=== PATIENT | female | born 1950 | race Caucasian/White ===

== ENCOUNTER 2016-10-23 09:18 | Outpatient (CLI) | payer MEDICARE, OTHER ==
--- NOTE | 2016-11-06 13:14 | Mammography Report ---
DIGITAL SCREENING MAMMOGRAM: 10/23/2016 CLINICAL INDICATION: A 66-year-old with family history of breast cancer, for screening. COMPARISON: 11/2014, 01/2014, 02/2013, 12/2012, 12/2011, 11/2010, 10/2009, 07/2008. TECHNIQUE: Routine CC and MLO projections were obtained of the breasts. FINDINGS: Scattered fibroglandular tissue is present within the breasts. There are no dominant rae s, suspicious microcalcifications, or secondary signs of malignancy. In comparison to the previous st udies, there are no significant changes. ASSESSMENT: NO MAMMOGRAPHIC EVIDENCE OF MALIGNANCY. NO SIGNIFICANT INTERVAL CHANGES. RECOMMENDATION: Screening mammography is recommended annually. BIRADS category 1 - negative. STANDARD QUALIFYING STATEMENTS 1. This examination was reviewed with the aid of Computed-Aided Detection (CAD). 2. A negative or benign imaging report should not delay biopsy if clinically suspicious findings are present. Consider surgical consultation if warranted. More than 5% of cancers are not identified by i maging. 3. Dense breasts may obscure an underlying neoplasm. JOB #: [id number] EXT JOB #:[id number]
== END 2016-10-23 09:19 | disposition home or self-care (01) ==
LOC: DI 09:18
PROVIDERS: ATTEND Obstetrics & Gynecology
DX: Z12.31 Encounter for screening mammogram for malignant neoplasm of breast (principal); Z80.3 Family history of malignant neoplasm of breast
CPT/HCPCS: 77067

== ENCOUNTER 2017-05-29 01:56 | Outpatient (CLI) | payer MEDICARE, OTHER | END 2017-05-29 01:57 | disposition critical access hospital (66) | LOC: EMS 01:56 | PROVIDERS: ATTEND Surgery | DX: R10.11 Right upper quadrant pain (principal) | CPT/HCPCS: A0425; A0429 ==

== ENCOUNTER 2017-05-29 02:14 | Emergency (ER) | payer MEDICARE, OTHER ==
[2017-05-29] MEDS ORDERED: SODIUM CHLORIDE 0.9% 1,000 ML IV ONE (02:31)
[2017-05-29] MEDS ORDERED: ACETAMINOPHEN 325 MG TABLET PO STA (02:31)
--- NOTE | 2017-05-29 02:40 | ED Physician Documentation ---
History of Present Illness - Stated complaint Stated Complaint: FEVER, CHILLS, BACK PAIN - Chief complaint Chief Complaint: Back Pain - History obtained from History obtained from: Patient (pt reports that for the past 4-5 days she has not felt well, has had chills and sweats, right flank pain, urinary sx, cough, decreased oral intake, no rashes, no bowel sx, no abd pain, some nausea but no vomiting. no travel, no abx use.) Review of Systems Constitutional: reports: Fever, Chills, Myalgias, Fatigue Ears: denies: Drainage/discharge, Tinnitus/ringing Nose: denies: Congestion, Sinus pressure / pain Throat: reports: Oral lesions / sores. denies: Dental pain / toothache, Sore throat, Swollen tonsils Cardiac: denies: Chest pain / pressure, Palpitations Respiratory: reports: Cough. denies: Dyspnea, Hemoptysis, Wheezing GI: reports: Nausea. denies: Abdominal Pain, Vomiting, Constipation, Diarrhea, Bloody / black stool : reports: Dysuria, Frequency, Incontinent. denies: Unable to Void, Hematuria , Discharge, Vaginal bleeding Skin: denies: Rash, Lesions, Laceration (s) Musculoskeletal: reports: Back pain (right CVA). denies: Neck pain Neurologic: reports: Generalized weakness. denies: Focal weakness, Numbness, Confused, Altered mental status, Headache, LOC PD PAST MEDICAL HISTORY - Past Medical History Cardiovascular: Hypertension, High cholesterol Endocrine/Autoimmune: Type 2 diabetes - Present Medications Home Medications: Ambulatory Orders Medication Instructions Recorded Confirmed Aspirin [Aspirin EC] 81 mg PO DAILY 05/29/17 05/29/17 Canagliflozin [Invokana] 100 mg PO DAILY 05/29/17 05/29/17 Ciprofloxacin HCl [Cipro] 500 mg PO BID #14 tablet 05/29/17 Felodipine [Felodipine ER] 5 mg PO DAILY 05/29/17 05/29/17 Lisinopril 20 mg PO DAILY 05/29/17 05/29/17 Simvastatin 40 mg PO DAILY 05/29/17 05/29/17 glipiZIDE ER [Glucotrol Xl] 2.5 mg PO DAILY 05/29/17 05/29/17 metFORMIN [Glucophage] 500 mg PO DAILY 05/29/17 05/29/17 - Allergies Allergies/Adverse Reactions: Allergies Allergy/AdvReac Type Severity Reaction Status Date / Time No Known Drug Allergies Allergy Verified 05/29/17 02:27 PD ED PE NORMAL - Vitals Vital signs reviewed: Yes (tachycardic and febrile) - General General: Alert and oriented X 3, No acute distress, Well developed/nourished - HEENT HEENT: Atraumatic, Moist mucous membranes, Pharynx benign - Neck Neck: Supple, no meningeal sign - Cardiac Cardiac: RRR (tachycardic but regular), No murmur, No gallop, Strong equal pulses (radial ) - Respiratory Respiratory: No respiratory distress, Clear bilaterally - Abdomen Abdomen: Soft, Non tender, Non distended - Back Back: No: No CVA TTP (right CVA) - Derm Derm: Normal color, No rash - Extremities Extremities: No deformity, No tenderness to palpate, No edema - Neuro Neuro: Alert and oriented X 3, No motor deficit, No sensory deficit, Normal speech Eye Opening: Spontaneous Motor: Obeys Commands Verbal: Oriented GCS Score: 15 - Psych Psych: Normal mood, Normal affect Results - Vitals Vitals: Vital Signs - 24 hr 05/29/17 05/29/17 02:23 04:15 Temperature 38.6 C H Heart Rate 117 H 96 Respiratory 20 27 H Rate Blood Pressure 161/70 H 141/75 H O2 Saturation 98 98 Oxygen O2 Source Room air - EKG (time done) 0238 Rate: Rate (enter#) Rhythm: Sinus tachycardia [place]: Normal Intervals: Normal LA, QRS normal QRS: Normal Ischemia: Normal ST segments - Labs Labs: Laboratory Tests 05/29/17 05/29/17 05/29/17 03:04 03:04 03:04 WBC 7.7 RBC 3.70 L Hgb 11.6 L Hct 33.4 L MCV 90.4 MCH 31.5 H MCHC 34.8 RDW 13.5 Plt Count 138 MPV 8.4 Neut # 6.5 Lymph # 0.3 L [place] # 0.9 Eos # 0.0 Baso # 0.0 Absolute Nucleated RBC 0.00 Nucleated RBC % 0.0 Sodium 134 L Potassium 3.6 Chloride 104 Carbon Dioxide 21 Anion Gap 9.0 BUN 19 Creatinine 0.8 Estimated GFR (MDRD) 72 L Glucose 230 H Lactic Acid 0.9 Calcium 8.8 Total Bilirubin 0.8 AST 61 H ALT 73 H Alkaline Phosphatase 107 Total Protein 6.3 L Albumin 3.2 Globulin 3.1 Albumin/Globulin Ratio 1.0 Lipase 13 L Urine Color Urine Clarity Urine pH Ur Specific [place] Urine Protein Urine Glucose (UA) Urine Ketones Urine Occult Blood Urine Nitrite Urine Bilirubin Urine Urobilinogen Ur Leukocyte Esterase Urine RBC Urine WBC Ur Squamous Epith Cells Urine Bacteria Ur Microscopic Review Urine Culture Comments 05/29/17 03:45 WBC RBC Hgb Hct MCV MCH MCHC RDW Plt Count MPV Neut # Lymph # [place] # Eos # Baso # Absolute Nucleated RBC Nucleated RBC % Sodium Potassium Chloride Carbon Dioxide Anion Gap BUN Creatinine Estimated GFR (MDRD) Glucose Lactic Acid Calcium Total Bilirubin AST ALT Alkaline Phosphatase Total Protein Albumin Globulin Albumin/Globulin Ratio Lipase Urine Color YELLOW Urine Clarity CLEAR Urine pH 6.0 Ur Specific [place] 1.015 Urine Protein 30 H Urine Glucose (UA) 500 H Urine Ketones 40 H Urine Occult Blood SMALL H Urine Nitrite POSITIVE H Urine Bilirubin NEGATIVE Urine Urobilinogen 0.2 (NORMAL) Ur Leukocyte Esterase NEGATIVE Urine RBC 6-10 H Urine WBC 6-10 H Ur Squamous Epith Cells RARE Squamous Urine Bacteria Moderate H Ur Microscopic Review INDICATED Urine Culture Comments INDICATED PD MEDICAL DECISION MAKING - ED course Complexity details: reviewed results, re-evaluated patient, considered differential, d/w patient, d/w family ED course: Pt with tachycardia (improved with fluids and tylenol), fever, right flank pain and nitrite pos UA. pt hx and PE and labs C/W pyelo. she was able to tolerate PO intake in the ER w/o problems. first dose of ABX given in the ER w/o vomiting. pt had no vomiting while in the ER. lactate <1. no elevation in WBC. considered admission for the pyelo but because she was able to tolerate Po intake and the ABX will give trial of outpatient treatment. pt and jovanaxbbryant were given return precautions. Pt was informed that she had a urine culture pending and to follow up with her PCM. Departure - Departure Disposition: 01 Home, Self Care Clinical Impression: Pyelonephritis, Hyperglycemia due to type 2 diabetes mellitus Condition: Good Instructions: Pyelonephritis Dc Follow-Up: Tavares Hess MD [Primary Care Provider] - Prescriptions: Ciprofloxacin HCl [Cipro] 500 mg PO BID #14 tablet Comments: take your medications as instructed. Increase your fluid intake. use tylenol for any fevers, chills or body aches. Return to the ER for any new symptoms, no improvement on the antibiotics, inability to tolerate your antibiotics or any other new or worsening symptoms.
[2017-05-29 03:15] LABS: BASOPHILS % (AUTO) 0.3 %; EOSINOPHILS % (AUTO) 0.2 %; HGB - HEMOGLOBIN 11.6 g/dL (12.0-16.0); LYMPHOCYTES # (AUTO) 0.3 10^3/uL (1.5-3.5); LYMPHOCYTES % (AUTO) 3.8 %; MEAN CORPUSCULAR HEMOGLOBIN 31.5 pg (27.0-31.0); MEAN CORPUSCULAR HGB CONC 34.8 g/dL (32.0-36.0); MEAN CORPUSCULAR VOLUME 90.4 fL (81.0-99.0); MEAN PLATELET VOLUME 8.4 fL (7.9-10.8); MONOCYTES # (AUTO) 0.9 10^3/uL (0.0-1.0); MONOCYTES % (AUTO) 11.4 %; NEUTROPHILS # (AUTO) 6.5 10^3/uL (1.5-6.6); NEUTROPHILS % (AUTO) 84.3 %; PLT - PLATELET COUNT 138 10^3/uL (130-450); RED CELL DISTRIBUTION WIDTH 13.5 % (12.0-15.0); WHITE BLOOD COUNT 7.7 x10^3/uL (4.8-10.8)
[2017-05-29 03:24] LABS: ALBUMIN 3.2 g/dL (3.2-5.5); BILIRUBIN,TOTAL 0.8 mg/dL (0.2-1.0); CALCIUM 8.8 mg/dL (8.5-10.3); CREATININE 0.8 mg/dL (0.4-1.0); TOTAL PROTEIN 6.3 g/dL (6.7-8.2)
[2017-05-29 03:59] LABS: BILIRUBIN,URINE NEGATIVE (NEGATIVE); GLUCOSE, URINE (UA) 500 mg/dL (NEGATIVE); KETONES,URINE (UA) 40 mg/dL (NEGATIVE); LEUKOCYTE ESTERASE, URINE NEGATIVE (NEGATIVE); NITRITE,URINE POSITIVE (NEGATIVE); OCCULT BLOOD,URINE SMALL (NEGATIVE); PROTEIN,URINE 30 mg/dL (NEGATIVE); UROBILINOGEN,URINE 0.2 (NORMAL) E.U./dL (NORMAL)
[2017-05-29 04:08] LABS: BACTERIA,URINE Moderate /HPF (None Seen); CLARITY,URINE CLEAR (CLEAR); SQUAMOUS EPITHELIAL CELL,UR RARE Squamous (<= Few)
[2017-05-29] MEDS ORDERED: CIPROFLOXACIN 250 MG TABLET PO STA (04:11)
[2017-05-29 04:35] VITALS: BP 142/82
== END 2017-05-29 04:40 | disposition home or self-care (01) ==
LOC: EDUNIT# → ED 02:14 → SUPCPDRO 02:14 → ED 04:40
DX: R53.83 Other fatigue (principal); N12 Tubulo-interstitial nephritis, not specified as acute or chronic; E11.65 Type 2 diabetes mellitus with hyperglycemia; Z79.84 Long term (current) use of oral hypoglycemic drugs; R00.0 Tachycardia, unspecified; I10 Essential (primary) hypertension; Z79.82 Long term (current) use of aspirin
CPT/HCPCS: 36415; 80053; 81001; 81003; 83605; 83690; 85025; 87040; 87086; 93005; 96360; 99284

== ENCOUNTER 2017-05-29 19:10 | Inpatient (IN) | payer MEDICARE, OTHER ==
[2017-05-29] MEDS ORDERED: cefTRIAXone 1 GM VIAL IVP STA (19:27)
[2017-05-29] MEDS ORDERED: SODIUM CHLORIDE 0.9% 1,000 ML IV ONE ×2 (19:27)
--- NOTE | 2017-05-29 19:28 | ED Physician Documentation ---
History of Present Illness - Stated complaint Stated Complaint: ABN LAB - Chief complaint Chief Complaint: UTI - History obtained from History obtained from: Patient, Family - History of Present Illness Timing: Today Pain level max: 3 Pain level now: 0 Improved by: cipro Worsened by: nothing - Additonal information Additional information: Patient is a 67-year-old female who was seen here earlier today for rigors, fevers and chills. Diagnosed with a UTI and sent home on ciprofloxacin. Her blood cultures both returned positive with gram-negative bacilli. Therefore she was called back to the emergency department. She states she is actually feeling better than she was last night and has been doing well at home. She states that the right-sided flank pain is decreasing from what it was. No vomiting. Did have one more episode of shaking chills at home. Review of Systems Ten Systems: 10 systems reviewed and negative Constitutional: reports: Fever, Chills, Myalgias Ears: denies: Ear pain Nose: denies: Rhinorrhea / runny nose, Congestion Throat: denies: Sore throat Cardiac: denies: Chest pain / pressure Respiratory: denies: Cough GI: denies: Abdominal Pain, Nausea, Vomiting, Diarrhea : reports: Dysuria Skin: denies: Rash Musculoskeletal: denies: Neck pain, Back pain Neurologic: denies: Headache PD PAST MEDICAL HISTORY - Past Medical History Cardiovascular: Hypertension, High cholesterol Endocrine/Autoimmune: Type 2 diabetes - Past Surgical History Past Surgical History: No - Present Medications Home Medications: Ambulatory Orders Medication Instructions Recorded Confirmed Aspirin [Aspirin EC] 81 mg PO DAILY 05/29/17 05/29/17 Canagliflozin [Invokana] 100 mg PO DAILY 05/29/17 05/29/17 Ciprofloxacin HCl [Cipro] 500 mg PO BID #14 tablet 05/29/17 Felodipine [Felodipine ER] 5 mg PO DAILY 05/29/17 05/29/17 Lisinopril 20 mg PO DAILY 05/29/17 05/29/17 Simvastatin 40 mg PO DAILY 05/29/17 05/29/17 glipiZIDE ER [Glucotrol Xl] 2.5 mg PO DAILY 05/29/17 05/29/17 metFORMIN [Glucophage] 500 mg PO DAILY 05/29/17 05/29/17 - Allergies Allergies/Adverse Reactions: Allergies Allergy/AdvReac Type Severity Reaction Status Date / Time No Known Drug Allergies Allergy Verified 05/29/17 02:27 - Social History Does the pt smoke?: No Smoking Status: Former smoker Does the pt drink ETOH?: Yes Does the pt have substance abuse?: No - Immunizations Immunizations are current?: Yes - POLST Patient has POLST: No PD ED PE NORMAL - Vitals Vital signs reviewed: Yes - General General: Alert and oriented X 3, No acute distress - HEENT HEENT: Moist mucous membranes - Neck Neck: Supple, no meningeal sign - Cardiac Cardiac: RRR - Respiratory Respiratory: No respiratory distress, Clear bilaterally - Abdomen Abdomen: Soft, Non tender, Non distended - Back Back: No CVA TTP - Derm Derm: Warm and dry - Neuro Neuro: Alert and oriented X 3 - Psych Psych: Normal mood, Normal affect Results - Vitals Vitals: Vital Signs - 24 hr 05/29/17 05/29/17 19:13 21:58 Temperature 36.5 C 103.1 C H Heart Rate 93 106 H Respiratory 18 26 H Rate Blood Pressure 124/70 141/68 H O2 Saturation 96 98 Oxygen O2 Source Room air - Labs Labs: Laboratory Tests 05/29/17 05/29/17 05/29/17 19:45 19:45 19:45 WBC 8.9 RBC 3.96 L Hgb 12.2 Hct 36.1 L MCV 91.2 MCH 30.8 MCHC 33.8 RDW 13.8 Plt Count 170 MPV 8.8 Neut # Not Reportable Lymph # Not Reportable [place] # Not Reportable Eos # Not Reportable Baso # Not Reportable Absolute Nucleated RBC Not Reportable Total Counted 100 Band Neuts % (Manual) 2 Reactive Lymphs % (Man) 2 Abnorm Lymph % (Manual) 0 Metamyelocytes % 1 H Promyelocytes % 1 H Nucleated RBC % Not Reportable Neutrophils # (Manual) 5.8 Lymphocytes # (Manual) 2.0 Monocytes # (Manual) 0.4 Eosinophils # (Manual) 0.4 Basophils # (Manual) 0.0 Differential Comment MANUAL DIFFERENTIAL Platelet Estimate NORMAL (130-450,000) Platelet Morphology NORMAL APPEARANCE RBC Morph Micro Appear NORMAL APPEARANCE Sodium 135 Potassium 3.3 L Chloride 102 Carbon Dioxide 23 Anion Gap 10.0 BUN 20 Creatinine 0.8 Estimated GFR (MDRD) 72 L Glucose 251 H Lactic Acid 1.4 Calcium 9.3 Total Bilirubin 0.5 AST 54 H ALT 76 H Alkaline Phosphatase 101 Total Protein 6.5 L Albumin 3.3 Globulin 3.2 Albumin/Globulin Ratio 1.0 Lipase 19 L PD MEDICAL DECISION MAKING - ED course Complexity details: reviewed old records, reviewed results, re-evaluated patient , considered differential, d/w patient, d/w family, d/w sales operations consultant ED course: Patient is a 67-year-old female who presents to the emergency department with symptoms of pyelonephritis and 2 positive blood cultures for gram-negative bacilli. Given IV fluids and started on Rocephin. Discussed case with the hospitalist who accepts. She is well-appearing, nontoxic. Did spike a fever while in the emergency department and treated with Tylenol. Lactate is normal. This document was made in part using voice recognition software. While efforts are made to proofread this document, sound alike and grammatical errors may occur. Departure - Departure Disposition: 67 [facility] DC/Xfer Clinical Impression: Positive blood cultures, Pyelonephritis Hyperglycemia due to type 2 diabetes mellitus Qualifiers: Diabetes mellitus tank terminal gauger insulin use: unspecified tank terminal gauger insulin use status Qualified Code(s): E11.65 - Type 2 diabetes mellitus with hyperglycemia Condition: Stable Discharge Date/Time: 05/29/17 22:44
[2017-05-29 20:01] LABS: HGB - HEMOGLOBIN 12.2 g/dL (12.0-16.0); MEAN CORPUSCULAR HGB CONC 33.8 g/dL (32.0-36.0)
[2017-05-29 20:06] LABS: BASOPHILS % (AUTO) 0.5 %; EOSINOPHILS % (AUTO) 0.5 %; LYMPHOCYTES % (AUTO) 10.4 %; MEAN CORPUSCULAR HEMOGLOBIN 30.8 pg (27.0-31.0); MEAN CORPUSCULAR VOLUME 91.2 fL (81.0-99.0); MEAN PLATELET VOLUME 8.8 fL (7.9-10.8); MONOCYTES % (AUTO) 10.5 %; NEUTROPHILS % (AUTO) 78.1 %; PLT - PLATELET COUNT 170 10^3/uL (130-450); RED BLOOD COUNT 3.96 10^6/uL (4.20-5.40); RED CELL DISTRIBUTION WIDTH 13.8 % (12.0-15.0); WHITE BLOOD COUNT 8.9 x10^3/uL (4.8-10.8)
[2017-05-29 20:08] LABS: ABNORMAL LYMPHS % (MANUAL) 0 %
[2017-05-29 20:16] LABS: ALBUMIN 3.3 g/dL (3.2-5.5); BILIRUBIN,TOTAL 0.5 mg/dL (0.2-1.0); CALCIUM 9.3 mg/dL (8.5-10.3); CREATININE 0.8 mg/dL (0.4-1.0); TOTAL PROTEIN 6.5 g/dL (6.7-8.2)
[2017-05-29 21:01] LABS: BAND NEUTROPHILS % (MANUAL) 2 %; DIFFERENTIAL COMMENT MANUAL DIFFERENTIAL; EOSINOPHILS # (MANUAL) 0.4 10^3/uL (0-0.7); LYMPHOCYTES % (MANUAL) 21 %; METAMYELOCYTES % (MANUAL) 1 %; MONOCYTES # (MANUAL) 0.4 10^3/uL (0.0-1.0); NEUTROPHILS # (MANUAL) 5.8 10^3/uL (1.5-6.6); NEUTROPHILS % (MANUAL) 63 %; PLATELET ESTIMATE, MANUAL NORMAL (130-450,000) (NORMAL); PLATELET MORPHOLOGY NORMAL APPEARANCE (NORMAL); PROMYELOCYTES % (MANUAL) 1 %; RBC MORPHOLOGY (MULTIPLE) NORMAL APPEARANCE (NORMAL)
[2017-05-29] MEDS ORDERED: ACETAMINOPHEN 325 MG TABLET PO STA (22:00)
[2017-05-29] MEDS ORDERED: SODIUM CHLORIDE FLUSH 0.9% 10 ML SYRINGE IVP PRN (22:23)
[2017-05-29] MEDS ORDERED: TEMAZEPAM 15 MG CAPSULE PO PRN (22:23)
[2017-05-29] MEDS ORDERED: PROCHLORPERAZINE 10 MG/2 ML VIAL IVP PRN (22:23)
--- NOTE | 2017-05-29 22:37 | HISTORY & PHYSICAL EXAMINATION ---
Chief Complaint - Chief Complaint Chief Complaint: Fever and chills History of Present Illness - Admitted From Admitted From:: Home - History of Present Illness HPI Comment/Other: Ms. Shruti Marie is a very pleasant 67-year-old female who began to have fever and chills about 4 or 5 days ago. She came to the emergency room very early today with rigors and chills and blood cultures were obtained.2 sets of blood cultures came back positive for gram-negative bacilli and the patient was directed to come back to the hospital for admission for IV antibiotics. History - Past Medical History Cardiovascular: reports: Hypertension, High cholesterol Endocrine/Autoimmune: reports: Type 2 diabetes GI: reports: None CAD DESIGN ENGINEER: reports: None : reports: None HEENT: reports: None Psych: reports: None Musculoskeletal: reports: None Derm: reports: None MRSA Hx?: No - Past Surgical History Other past surgical history: No past surgical history - Family & Social History Family History: Mother: , Cancer (breast), CVA/TIA, Father: , CVA/TIA, Other family: Diabetes, Type 2, Hyperlipidemia, Hypertension Living arrangement: At home Living Situation: With spouse/s.o. - Substance History Use: Uses substance without health or social issues: Alcohol Abuse: Recurrent use of substance despite neg consequences: NONE Dependence: Experiences withdrawal or developed tolerances: NONE - POLST Patient has POLST: No POLST Status: Full Code Meds/Allgy - Home Medications Home Medications: Ambulatory Orders Medication Instructions Recorded Confirmed Aspirin [Aspirin EC] 81 mg PO DAILY 05/29/17 05/29/17 Canagliflozin [Invokana] 100 mg PO DAILY 05/29/17 05/29/17 Ciprofloxacin HCl [Cipro] 500 mg PO BID #14 tablet 05/29/17 Felodipine [Felodipine ER] 5 mg PO DAILY 05/29/17 05/29/17 Lisinopril 20 mg PO DAILY 05/29/17 05/29/17 Simvastatin 40 mg PO DAILY 05/29/17 05/29/17 glipiZIDE ER [Glucotrol Xl] 2.5 mg PO DAILY 05/29/17 05/29/17 metFORMIN [Glucophage] 500 mg PO DAILY 05/29/17 05/29/17 - Allergies Allergies/Adverse Reactions: Allergies Allergy/AdvReac Type Severity Reaction Status Date / Time No Known Drug Allergies Allergy Verified 05/29/17 02:27 Review of Systems - Constitutional Constitutional: reports: Fever, Chills, Weakness, Poor appetite - Eyes Eyes: denies: Pain, Irritation, Blurred vision, Dipolpia - Ears, Nose & Throat Ears, Nose & Throat: denies: Ear pain, Hearing loss, Tinnitus, Vertigo, Nasal discharge - Cardiovascular Cariovascular: reports: Lightheadedness. denies: Palpitations, Chest pain, Edema - Respiratory Respiratory: reports: Cough, Sputum production, SOB with exertion. denies: Wheezing, Snoring, Hemoptysis - Gastrointestinal Gastrointestinal: denies: Abdominal pain, Abdominal distention, Constipation, Diarrhea, Change in bowel habits, Rectal bleeding - Genitourinary Genitourinary: denies: Dysuria, Frequency, Urgency, Hematuria - Musculoskeletal Musculoskeletal: denies: Muscle pain, Back pain, Muscle aches, Stiffness - Integumentary Integumentary: denies: Rash, Pruritis, Lesions, Dryness - Neurological Neurological: denies: General weakness, Focal weakness, Headache, Dizziness - Psychiatric Psychiatric: denies: Depression, Anxiety, Suicidal - Endocrine Endocrine: reports: Intolerance to cold. denies: Polyuria, Polydypsia, Polyphagia - Hematologic/Lymphatic Hematologic/Lymphatic: denies: Anemia, Bruising, Petechiae, Blood clots - All Other Systems All Other Systems: reports: Reviewed and negative Exam - Vital Signs Reviewed Vital Signs: Yes Vital Signs: Vital Signs x48h Temp Pulse Resp BP Pulse Ox 05/29/17 21:58 103.1 C H 106 H 26 H 141/68 H 98 05/29/17 19:13 36.5 C 93 18 124/70 96 - Physical Exam General Appearance: positive: Alert, Mild distress Eyes Bilateral: positive: Normal inspection, PERRL, EOMI ENT: positive: ENT inspection nml, Pharynx nml, No signs of dehydration. negative: Purulent nasal drainage Neck: positive: Nml inspection, Thyroid nml, No JVD, Trachea midline. negative : Thyromegaly Respiratory: positive: Chest non-tender, No respiratory distress, Breath sounds nml. negative: Wheezes, Rales, Rhonchi Cardiovascular: positive: Regular rate & rhythm, No murmur, No gallop. negative : Systolic murmur, Diastolic murmur Peripheral Pulses: positive: 1+ Abdomen: positive: Non-tender, No organomegaly, Nml bowel sounds, No distention. negative: Guarding, Rebound Back: positive: Nml inspection. negative: CVA tenderness (R), CVA tenderness (L ) Skin: positive: Color nml, No rash, Warm, Dry. negative: Diaphoresis Extremities: positive: Non-tender, Full ROM, Nml appearance Neurologic/Psychiatric: positive: Oriented x3, CN's nml (2-12), Motor nml, Sensation nml, Mood/affect nml Conclusion/Plan - Problem List (1) Positive blood cultures Conclusion/Plan: The patient has 2 independent blood cultures which are positive for gram- negative bacilli. I will start her on ceftriaxone, 2 g every 8 hours around-the -clock and monitor her closely.We will await the results of the blood cultures and make any changes as necessary once they are obtained. We will continue the patient on medications for her diabetes hypertension and hyperlipidemia. - Lab Results Lab results reviewed: Yes Fish Bones: 05/29/17 19:45 05/29/17 19:45 Issues/Core Measures - Anticipated LOS Anticipated Stay Length: 2 or more midnights - [facility] Requirement for [facility] I expect patient to be DC'd or transferred within 96 hours.: Yes - DVT/VTE - Prophylaxis VTE/DVT Device ordered at admit?: Yes
[2017-05-29] MEDS: D5.45NS W/20 MEQ KCL 1,000 ML IV SCH (23:46)
[2017-05-30] MEDS: SODIUM CHLORIDE FLUSH 0.9% 10 ML SYRINGE IVP SCH ×3 (03:08→20:57)
[2017-05-30] MEDS: IBUPROFEN 400 MG TABLET PO PRN (06:00)
[2017-05-30] MEDS ORDERED: cefTAZidime 2 GM in SODIUM CHLORIDE 0.9% MINIBAG 100 ML IV SCH (06:00)
[2017-05-30] MEDS ORDERED: ACETAMINOPHEN 1,000 MG/100 ML 100 ML IV PRN (07:26)
[2017-05-30] MEDS ORDERED: metFORMIN 500 MG TABLET PO SCH (08:00)
[2017-05-30] MEDS: cefTAZidime 2 GM in SODIUM CHLORIDE 0.9% MINIBAG 100 ML IV SCH ×2 (08:17→20:57)
[2017-05-30] MEDS: ASPIRIN EC 81 MG TABLET PO SCH (08:20)
[2017-05-30] MEDS: POLYETHYLENE GLYCOL 3350 17 GM PACKET PO SCH (08:21)
[2017-05-30] MEDS: INSULIN ASPART 300 UNIT/3 ML PEN SUBQ SCH ×4 (08:22→20:49)
[2017-05-30] MEDS ORDERED: FELODIPINE ER 2.5 MG TABLET PO SCH (09:00)
[2017-05-30] MEDS ORDERED: NON FORMULARY MED (Simvastatin [Simvastatin] 40 MG) PO SCH (09:00)
[2017-05-30] MEDS ORDERED: LISINOPRIL 20 MG TABLET PO SCH ×2 (09:00→21:00)
[2017-05-30] MEDS: D5.45NS W/20 MEQ KCL 1,000 ML IV SCH (09:25)
[2017-05-30] MEDS: ACETAMINOPHEN 325 MG TABLET PO PRN ×2 (14:00→19:46)
--- NOTE | 2017-05-30 16:07 | XRAY Report ---
EXAM: CHEST RADIOGRAPHY EXAM DATE: 05/30/2017 03:49 PM. CLINICAL HISTORY: Fever. Crackles. COMPARISON: None. TECHNIQUE: 1 view. FINDINGS: Lungs/Pleura: No focal opacities evident. No pleural effusion. No pneumothorax. Mediastinum: Within exam limitations, the cardiomediastinal contour is normal. Other: No bony abnormalities noted. IMPRESSION: Normal single view chest. [facility] Referring Provider Line: [phone] SITE ID: [id number]
[2017-05-30] MEDS: MAGIC MOUTHWASH 120 ML BOTTLE PO PRN (16:48)
--- NOTE | 2017-05-30 18:24 | PROVIDER PROGRESS NOTE ---
Subjective - Prog Note Date Prog Note Date: 05/30/17 Prog Note Time: 18:22 - Subjective Pt reports feeling: No change Subjective: Shruti complains of mouth sores from shivering at home during times of fever. She denies SOB, chest pain, N/V, or a new cough. Current Medications - Current Medications Current Medications: Active Medications Acetaminophen (Tylenol) 650 mg PO Q4HR PRN PRN Reason: Pain or Fever > 38C (100.4F) Last Admin: 05/30/17 14:00 Dose: 650 mg Aspirin (Ecotrin) 81 mg PO DAILY [facility] Last Admin: 05/30/17 08:20 Dose: 81 mg Atorvastatin Calcium (Lipitor) 20 mg PO QPM [facility] Felodipine (Plendil) 5 mg PO QPM [facility] Glipizide (Glucotrol Xl) 2.5 mg PO QPM [facility] Ceftazidime 2 gm/ Sodium (Chloride) 100 mls @ 100 mls/hr IV Q12H [facility] Last Infusion: 05/30/17 09:18 Dose: Infused Acetaminophen (Ofirmev) 100 mls @ 400 mls/hr IV Q6HR PRN PRN Reason: PAIN Ibuprofen (Motrin) 400 mg PO Q4HR PRN PRN Reason: Pain 1 to 4 Last Admin: 05/30/17 06:00 Dose: 400 mg Insulin Aspart (Novolog) 1 - 9 unit SUBQ 0800,1200,1700,2100 [facility] PRN Reason: Protocol Last Admin: 05/30/17 16:48 Dose: 1 unit Insulin Glargine (Lantus Solostar) 10 unit SUBQ QPM [facility] Lisinopril (Zestril) 20 mg PO QPM [facility] Multi-Ingredient Mouthwash/Gargle () 30 ml PO Q4H PRN PRN Reason: Mouth Sore Pain Last Admin: 05/30/17 16:48 Dose: 30 ml (Canagliflozin [ Invokana] 100 Mg) Tab 1 each PO DAILY [facility] Last Admin: 05/30/17 08:27 Dose: 1 each Polyethylene Glycol (Miralax) 17 gm PO DAILY [facility] Last Admin: 05/30/17 08:21 Dose: Not Given Prochlorperazine Edisylate (Compazine Inj) 10 mg IVP Q6HR PRN PRN Reason: Nausea / Vomiting Sodium Chloride (Normal Saline Flush 0.9%) 10 ml IVP PRN PRN PRN Reason: NEEDED PER PROVIDER ORDERS Sodium Chloride (Normal Saline Flush 0.9%) 10 ml IVP Q8HR [facility] Last Admin: 05/30/17 14:00 Dose: Not Given Temazepam (Restoril) 15 mg PO QPM PRN PRN Reason: Insomnia Aspirin [Aspirin EC] 81 mg PO DAILY 05/29/17 Canagliflozin [Invokana] 100 mg PO DAILY 05/29/17 Felodipine [Felodipine ER] 5 mg PO DAILY 05/29/17 Lisinopril 20 mg PO DAILY 05/29/17 Simvastatin 40 mg PO QPM 05/29/17 glipiZIDE ER [Glucotrol Xl] 2.5 mg PO DAILY 05/29/17 metFORMIN [Glucophage] 500 mg PO DAILY 05/29/17 Objective - Vital Signs/Intake & Output Reviewed Vital Signs: Yes Vital Signs: Vital Signs x48h Temp Pulse Resp BP BP Pulse Ox 05/30/17 15:43 84 139/68 H 05/30/17 15:37 37.7 C H 83 16 155/83 H 95 05/30/17 15:06 37.8 C H 05/30/17 13:56 38.4 C H 05/30/17 12:00 37.7 C H Intake & Output: Intake & Output 05/27/17 05/28/17 05/29/17 05/30/17 23:59 23:59 23:59 23:59 Intake Total 375 2435 Output Total 100 Balance 375 2335 - Objective General Appearance: positive: No acute distress, Alert Eyes Bilateral: positive: Normal inspection, PERRL ENT: positive: ENT inspection nml, Pharynx nml, Dry mucous membranes Neck: positive: Nml inspection, Thyroid nml, No JVD, Trachea midline Respiratory: positive: Chest non-tender, No respiratory distress, Other (fine crackles bilateral low lobes.) Cardiovascular: positive: Regular rate & rhythm, No gallop, Systolic murmur Peripheral Pulses: 1+ Radial (R), 1+ Radial (L) Abdomen: positive: Non-tender, Guarding, Hepatomegaly, Abnml bowel sounds Back: positive: Nml inspection Skin: positive: Color nml, No rash, Warm, Dry Extremities: positive: Non-tender, Full ROM, No pedal edema Neurologic/Psychiatric: positive: Oriented x3, CN's nml (2-12), Motor nml, Sensation nml, Depressed mood/affect Reflexes: Bicep (R): 2+, Bicep (L): 2+ - Lab Results Fish Bones: 05/29/17 19:45 05/29/17 19:45 - Diagnostic Imaging Diagnostic Imaging Results: positive: Final report reviewed Assessment/Plan - Problem List (1) Positive blood cultures Impression: Patient was called to report to our ED after blood cultures were discovered to be positive. Patient gives a history of fever, chills, and flu like symptoms as early as 05/23. Preliminary pathogen tested out E. Coli. Plan: Continue current IV antibiotic, and wait for sensitivity results. (2) Pyelonephritis Impression: Patient denies dysuria, although has incontinence and urgency. Urine culture was obtained and is pending. Suspect leading cause of positive blood cultures. No back pain appreciated. Plan: IV antibiotics, and wait for sensitivities. Kidney ultrasound pending. (3) Diabetes mellitus type 2 in obese Impression: Patient admits to being diabetic for several years. HgA1c was ordered for AM. Patient is on 3 oral medications at home. Metformin PO was placed on hold, SSI and blood sugar checks. Plan: Review home medications, nutritional consult. (4) Hypertension Impression: Patient is on lisinopril at home and has DM type 2. 139/68 today. Plan: Continue home dose while inpatient and continue upon discharge. Qualifiers: Hypertension type: essential hypertension Qualified Code(s): I10 - Essential (primary) hypertension (5) Hyperlipidemia Impression: Patient takes a statin at home. LFTs mildly elevated upon admission, AST at 54 , ALT at 76, suspect acute illness related. Plan: Patient can remain on statin, unless liver enzymes do not trend downward. Qualifiers: Hyperlipidemia type: mixed hyperlipidemia Qualified Code(s): E78.2 - Mixed hyperlipidemia
[2017-05-30] MEDS: INSULIN GLARGINE 300 UNIT/3 ML PEN SUBQ SCH (20:48)
[2017-05-30] MEDS: ATORVASTATIN 10 MG TABLET PO SCH (20:50)
[2017-05-30] MEDS: FELODIPINE ER 2.5 MG TABLET PO SCH (20:51)
--- NOTE | 2017-05-30 21:08 | Ultrasound Report ---
EXAM: RENAL ULTRASOUND EXAM DATE: 05/30/2017 08:02 PM. CLINICAL HISTORY: Pyelonephritis. COMPARISON: None. TECHNIQUE: Real-time scanning was performed with static images obtained. FINDINGS: Right Kidney: 12.6 x 5.5 x 6.5 cm. Normal echotexture with no stones, contour-deforming masses, or h ydronephrosis. Left Kidney: 11.6 x 5.4 x 7.5 cm. Normal echotexture with no stones, contour-deforming masses, or hy dronephrosis. Bladder: Bilateral jets seen. The prevoid bladder volume was 293 cc. The postvoid bladder volume was 22.5 cc. Other: None. IMPRESSION: Normal renal ultrasound. [facility] Referring Provider Line: [phone] SITE ID: [id number]
[2017-05-31] MEDS: IBUPROFEN 400 MG TABLET PO PRN (00:24)
[2017-05-31] MEDS: ACETAMINOPHEN 325 MG TABLET PO PRN ×3 (05:00→20:54)
[2017-05-31] MEDS: SODIUM CHLORIDE FLUSH 0.9% 10 ML SYRINGE IVP SCH ×3 (05:00→20:57)
[2017-05-31 05:35] LABS: ALBUMIN 2.6 g/dL (3.2-5.5); ALBUMIN/GLOBULIN RATIO 0.8 (1.0-2.2); BILIRUBIN,TOTAL 0.5 mg/dL (0.2-1.0); CALCIUM 9.3 mg/dL (8.5-10.3); CREATININE 0.6 mg/dL (0.4-1.0); TOTAL PROTEIN 5.8 g/dL (6.7-8.2)
[2017-05-31 05:38] LABS: BASOPHILS % (AUTO) 0.6 %; EOSINOPHILS # (AUTO) 0.2 10^3/uL (0.0-0.7); EOSINOPHILS % (AUTO) 2.8 %; LYMPHOCYTES # (AUTO) 1.1 10^3/uL (1.5-3.5); LYMPHOCYTES % (AUTO) 19.7 %; MEAN CORPUSCULAR HEMOGLOBIN 30.8 pg (27.0-31.0); MEAN CORPUSCULAR HGB CONC 33.8 g/dL (32.0-36.0); MEAN CORPUSCULAR VOLUME 90.9 fL (81.0-99.0); MEAN PLATELET VOLUME 8.4 fL (7.9-10.8); MONOCYTES % (AUTO) 16.6 %; NEUTROPHILS # (AUTO) 3.5 10^3/uL (1.5-6.6); NEUTROPHILS % (AUTO) 60.3 %; PLT - PLATELET COUNT 173 10^3/uL (130-450); RED BLOOD COUNT 3.59 10^6/uL (4.20-5.40); RED CELL DISTRIBUTION WIDTH 13.9 % (12.0-15.0); WHITE BLOOD COUNT 5.8 x10^3/uL (4.8-10.8)
[2017-05-31 06:31] LABS: HB2 TOTAL 11.6 g/dL; HEMOGLOBIN A1C 0.57 g/dL; HEMOGLOBIN A1C % 6.6 % (4.6-6.2)
[2017-05-31] MEDS ORDERED: POTASSIUM CHLORIDE 20 MEQ TABLET PO ONE (07:33)
[2017-05-31] MEDS: INSULIN ASPART 300 UNIT/3 ML PEN SUBQ SCH ×4 (07:36→20:53)
[2017-05-31] MEDS: ASPIRIN EC 81 MG TABLET PO SCH (09:11)
[2017-05-31] MEDS: cefTAZidime 2 GM in SODIUM CHLORIDE 0.9% MINIBAG 100 ML IV SCH (09:11)
[2017-05-31] MEDS: MAGIC MOUTHWASH 120 ML BOTTLE PO PRN (09:12)
[2017-05-31] MEDS: POLYETHYLENE GLYCOL 3350 17 GM PACKET PO SCH (09:56)
--- NOTE | 2017-05-31 11:56 | PROVIDER PROGRESS NOTE ---
Subjective - Prog Note Date Prog Note Date: 05/31/17 Prog Note Time: 11:56 - Subjective Pt reports feeling: Improved Subjective: Shruti complains about not being able to sleep at night due to noisy staff. She denies SOB, chest pain, N/V or a new cough. She still feels "under the weather" and is curled up in her blankets, and remains febrile. Current Medications - Current Medications Current Medications: Active Medications Acetaminophen (Tylenol) 650 mg PO Q4HR PRN PRN Reason: Pain or Fever > 38C (100.4F) Last Admin: 05/31/17 05:00 Dose: 650 mg Aspirin (Ecotrin) 81 mg PO DAILY [facility] Last Admin: 05/31/17 09:11 Dose: 81 mg Atorvastatin Calcium (Lipitor) 20 mg PO QPM [facility] Last Admin: 05/30/17 20:50 Dose: 20 mg Felodipine (Plendil) 5 mg PO QPM [facility] Last Admin: 05/30/17 20:51 Dose: 5 mg Glipizide (Glucotrol Xl) 2.5 mg PO QPM [facility] Last Admin: 05/30/17 20:52 Dose: 2.5 mg Ceftazidime 2 gm/ Sodium (Chloride) 100 mls @ 100 mls/hr IV Q12H [facility] Last Infusion: 05/31/17 10:15 Dose: Infused Acetaminophen (Ofirmev) 100 mls @ 400 mls/hr IV Q6HR PRN PRN Reason: PAIN Ibuprofen (Motrin) 400 mg PO Q4HR PRN PRN Reason: Pain 1 to 4 Last Admin: 05/31/17 00:24 Dose: 400 mg Insulin Aspart (Novolog) 1 - 9 unit SUBQ 0800,1200,1700,2100 [facility] PRN Reason: Protocol Last Admin: 05/31/17 11:28 Dose: Not Given Insulin Glargine (Lantus Solostar) 10 unit SUBQ QPM [facility] Last Admin: 05/30/17 20:48 Dose: 10 unit Lisinopril (Zestril) 20 mg PO QPM [facility] Last Admin: 05/30/17 20:52 Dose: 20 mg Multi-Ingredient Mouthwash/Gargle () 30 ml PO Q4H PRN PRN Reason: Mouth Sore Pain Last Admin: 05/31/17 09:12 Dose: 30 ml (Canagliflozin [ Invokana] 100 Mg) Tab 1 each PO DAILY [facility] Last Admin: 05/31/17 09:11 Dose: 1 each Polyethylene Glycol (Miralax) 17 gm PO DAILY [facility] Last Admin: 05/31/17 09:56 Dose: Not Given Prochlorperazine Edisylate (Compazine Inj) 10 mg IVP Q6HR PRN PRN Reason: Nausea / Vomiting Sodium Chloride (Normal Saline Flush 0.9%) 10 ml IVP PRN PRN PRN Reason: NEEDED PER PROVIDER ORDERS Sodium Chloride (Normal Saline Flush 0.9%) 10 ml IVP Q8HR [facility] Last Admin: 05/31/17 05:00 Dose: 10 ml Temazepam (Restoril) 15 mg PO QPM PRN PRN Reason: Insomnia Aspirin [Aspirin EC] 81 mg PO DAILY 05/29/17 Canagliflozin [Invokana] 100 mg PO DAILY 05/29/17 Felodipine [Felodipine ER] 5 mg PO DAILY 05/29/17 Lisinopril 20 mg PO DAILY 05/29/17 Simvastatin 40 mg PO QPM 05/29/17 glipiZIDE ER [Glucotrol Xl] 2.5 mg PO DAILY 05/29/17 metFORMIN [Glucophage] 500 mg PO DAILY 05/29/17 Objective - Vital Signs/Intake & Output Reviewed Vital Signs: Yes Vital Signs: Vital Signs x48h Temp Pulse Resp BP Pulse Ox 05/31/17 07:15 37.2 C 77 20 108/50 L 96 05/31/17 04:00 37.4 C Intake & Output: Intake & Output 05/28/17 05/29/17 05/30/17 05/31/17 23:59 23:59 23:59 23:59 Intake Total 375 2935 930 Output Total 100 Balance 375 2835 930 - Objective General Appearance: positive: No acute distress, Alert Eyes Bilateral: positive: Normal inspection, PERRL ENT: positive: ENT inspection nml, Pharynx nml, No signs of dehydration Neck: positive: Nml inspection, Thyroid nml, No JVD, Trachea midline Respiratory: positive: Chest non-tender, No respiratory distress, Other ( diminished.) Cardiovascular: positive: Regular rate & rhythm, No gallop, Systolic murmur Peripheral Pulses: 2+ Radial (R), 2+ Radial (L), 2+ Dorsalis pedis (R), 2+ Dorsalis pedis (L) Abdomen: positive: Non-tender, No organomegaly, No distention, Abnml bowel sounds (hyper) Back: positive: Nml inspection Skin: positive: Color nml, No rash, Warm, Dry Extremities: positive: Non-tender, Full ROM, No pedal edema Neurologic/Psychiatric: positive: Oriented x3, CN's nml (2-12), Motor nml, Sensation nml, Depressed mood/affect Reflexes: Bicep (R): 3+, Bicep (L): 3+ - Lab Results Fish Bones: 06/01/17 05:35 06/01/17 05:35 Other Labs: Lab Results x24hrs 05/31/17 05/31/17 05/31/17 Range/Units 04:56 04:56 04:56 WBC 5.8 (4.8-10.8) x10^3/uL RBC 3.59 L (4.20-5.40) 10^6/uL Hgb 11.0 L (12.0-16.0) g/dL Hct 32.7 L (37.0-47.0) % MCV 90.9 (81.0-99.0) fL MCH 30.8 (27.0-31.0) pg MCHC 33.8 (32.0-36.0) g/dL RDW 13.9 (12.0-15.0) % Plt Count 173 (130-450) 10^3/uL MPV 8.4 (7.9-10.8) fL Neut # 3.5 (1.5-6.6) 10^3/uL Lymph # 1.1 L (1.5-3.5) 10^3/uL [place] # 1.0 (0.0-1.0) 10^3/uL Eos # 0.2 (0.0-0.7) 10^3/uL Baso # 0.0 (0.0-0.1) 10^3/uL Absolute Nucleated RBC 0.00 x10^3/uL Nucleated RBC % 0.1 /100WBC Sodium 141 (135-145) mmol/L Potassium 3.2 L (3.5-5.0) mmol/L Chloride 108 (101-111) mmol/L Carbon Dioxide 25 (21-32) mmol/L Anion Gap 8.0 (6-13) BUN 8 (6-20) mg/dL Creatinine 0.6 (0.4-1.0) mg/dL Estimated GFR (MDRD) 100 (>89) Glucose 123 H (70-100) mg/dL Glycated Hemoglobin 6.6 H (4.6-6.2) % Estim Average Glucose 143 H (70-100) Calcium 9.3 (8.5-10.3) mg/dL Total Bilirubin 0.5 (0.2-1.0) mg/dL AST 26 (10-42) IU/L ALT 56 (10-60) IU/L Alkaline Phosphatase 84 (42-121) IU/L Total Protein 5.8 L (6.7-8.2) g/dL Albumin 2.6 L (3.2-5.5) g/dL Globulin 3.2 (2.1-4.2) g/dL Albumin/Globulin Ratio 0.8 L (1.0-2.2) - Diagnostic Imaging Diagnostic Imaging Results: positive: Final report reviewed Diagnostic Imaging Comments: Retroperitoneal US 05/30/17: FINDINGS: Right Kidney: 12.6 x 5.5 x 6.5 cm. Normal echotexture with no stones, contour- deforming masses, or hydronephrosis. Left Kidney: 11.6 x 5.4 x 7.5 cm. Normal echotexture with no stones, contour- deforming masses, or hydronephrosis. Bladder: Bilateral jets seen. The prevoid bladder volume was 293 cc. The postvoid bladder volume was 22.5 cc. Other: None. IMPRESSION: Normal renal ultrasound. Chest x-ray 05/30/17: FINDINGS: Lungs/Pleura: No focal opacities evident. No pleural effusion. No pneumothorax. Mediastinum: Within exam limitations, the cardiomediastinal contour is normal. Other: No bony abnormalities noted. IMPRESSION: Normal single view chest. Assessment/Plan - Problem List (1) Bacteremia Impression: Patient was called to report to our ED after blood cultures were discovered to be positive. Patient gives a history of fever, chills, and flu like symptoms as early as 05/23. Pathogen tested out E. Coli. Plan: IV antibiotics changed to Ertapenem on 05/31/17, as a result of sensitivities. (2) Pyelonephritis Impression: Patient denies dysuria, although has incontinence and urgency. Urine culture was obtained and is pending. Suspect leading cause of positive blood cultures. No back pain appreciated. Plan: IV antibiotics that will be changed to PO to continue at home. Kidney ultrasound shows no acute findings. (3) Diabetes mellitus type 2 in obese Impression: Patient admits to being diabetic for several years. HgA1c was 6.6%. Patient is on 3 oral medications at home. Metformin PO was placed on hold, SSI and blood sugar checks. Plan: Review home medications, nutritional consult and blood glucose checks. (4) Hypertension Impression: Patient is on lisinopril at home and has DM type 2. 148/71 today. Plan: Continue home dose while inpatient and continue upon discharge. Qualifiers: Hypertension type: essential hypertension Qualified Code(s): I10 - Essential (primary) hypertension (5) Hyperlipidemia Impression: Patient takes a statin at home. LFTs mildly elevated upon admission, AST at 54 , ALT at 76, suspect acute illness related. Plan: Patient can remain on statin, unless liver enzymes do not trend downward. Qualifiers: Hyperlipidemia type: mixed hyperlipidemia Qualified Code(s): E78.2 - Mixed hyperlipidemia
[2017-05-31] MEDS ORDERED: DIPHENOX/ATROPINE 2.5/0.025 MG TABLET PO PRN (14:53)
[2017-05-31] MEDS: ERTAPENEM 1 GM in SODIUM CHLORIDE 0.9% MINIBAG 100 ML IV SCH (16:07)
[2017-05-31] MEDS: SACCHAROMYCES BOULARDII 250 MG CAPSULE PO SCH (16:08)
[2017-05-31] MEDS: INSULIN GLARGINE 300 UNIT/3 ML PEN SUBQ SCH (20:52)
[2017-05-31] MEDS: FELODIPINE ER 2.5 MG TABLET PO SCH (20:55)
[2017-05-31] MEDS: ATORVASTATIN 10 MG TABLET PO SCH (20:55)
[2017-06-01] MEDS: ACETAMINOPHEN 325 MG TABLET PO PRN (04:06)
[2017-06-01 05:52] LABS: BASOPHILS # (AUTO) 0.1 10^3/uL (0.0-0.1); BASOPHILS % (AUTO) 0.8 %; EOSINOPHILS # (AUTO) 0.2 10^3/uL (0.0-0.7); EOSINOPHILS % (AUTO) 3.4 %; HGB - HEMOGLOBIN 11.7 g/dL (12.0-16.0); LYMPHOCYTES # (AUTO) 1.4 10^3/uL (1.5-3.5); LYMPHOCYTES % (AUTO) 20.5 %; MEAN CORPUSCULAR HGB CONC 33.3 g/dL (32.0-36.0); MEAN CORPUSCULAR VOLUME 90.3 fL (81.0-99.0); MEAN PLATELET VOLUME 7.9 fL (7.9-10.8); MONOCYTES # (AUTO) 0.9 10^3/uL (0.0-1.0); MONOCYTES % (AUTO) 13.2 %; NEUTROPHILS # (AUTO) 4.1 10^3/uL (1.5-6.6); NEUTROPHILS % (AUTO) 62.1 %; PLT - PLATELET COUNT 256 10^3/uL (130-450); RED BLOOD COUNT 3.88 10^6/uL (4.20-5.40); RED CELL DISTRIBUTION WIDTH 13.8 % (12.0-15.0); WHITE BLOOD COUNT 6.7 x10^3/uL (4.8-10.8)
[2017-06-01 05:53] LABS: ALBUMIN 2.8 g/dL (3.2-5.5); ALBUMIN/GLOBULIN RATIO 0.8 (1.0-2.2); BILIRUBIN,TOTAL 0.6 mg/dL (0.2-1.0); CALCIUM 9.5 mg/dL (8.5-10.3); CREATININE 0.6 mg/dL (0.4-1.0); TOTAL PROTEIN 6.3 g/dL (6.7-8.2)
[2017-06-01] MEDS: SODIUM CHLORIDE FLUSH 0.9% 10 ML SYRINGE IVP SCH ×2 (07:25→13:34)
[2017-06-01 07:42] VITALS: BP 135/69
[2017-06-01] MEDS: ASPIRIN EC 81 MG TABLET PO SCH (08:21)
[2017-06-01] MEDS: SACCHAROMYCES BOULARDII 250 MG CAPSULE PO SCH (08:21)
[2017-06-01] MEDS: ERTAPENEM 1 GM in SODIUM CHLORIDE 0.9% MINIBAG 100 ML IV SCH (08:26)
[2017-06-01] MEDS: MAGIC MOUTHWASH 120 ML BOTTLE PO PRN (08:26)
[2017-06-01] MEDS: INSULIN ASPART 300 UNIT/3 ML PEN SUBQ SCH ×2 (08:26→12:13)
[2017-06-01] MEDS: POLYETHYLENE GLYCOL 3350 17 GM PACKET PO SCH (08:27)
--- NOTE | 2017-06-01 12:46 | Discharge Plan ---
Discharge Plan Disposition: 01 Home, Self Care Condition: Stable Prescriptions: Levofloxacin [Levaquin] 500 mg PO DAILY 10 Days #10 tablet Saccharomyces Boulardii [Florastor] 250 mg PO BID #40 capsule Diet: Regular Activity Restrictions: No Restrictions Shower Restrictions: No Driving Restrictions: No Weight Bearing: Full Weight Additional Instructions or Follow Up instructions: Your blood cultures grew out Escherichia coli and you were aggressively treated with IV antibiotics. Take all of your medications as prescribed. Please see your PCP as a follow up to this stay. Rest when you feel tired. Monitor your blood sugars. No Smoking: If you smoke, Please STOP! Call for help. Follow-up with: Tavares Hess MD [Primary Care Provider] -
--- NOTE | 2017-06-01 13:07 | DISCHARGE SUMMARY ---
"Discharge Summary Admit Date: 05/29/17 Discharge Date: 06/01/17 Discharging Provider: ANABELL Cano Primary Care Provider: Tavares Hess Code Status: Attempt Resuscitation Condition at Discharge: Good Discharge Disposition: 01 Home, Self Care - DIAGNOSES Admission Diagnoses: Bacteremia (R78.81) Discharge Diagnoses with Status of Each Condition: E. coli sepsis (A41.51) -Treated with IV antibiotics and the site of illness was system and localized to bladder, stable and PO antibiotics to continue at home. Positive blood cultures (R78.81)- stable. Resolving, likely would be negative if re-checked due to aggressive IV antibiotic treatment. Pyelonephritis (N12) -ruled out. Diabetes mellitus type 2 in obese (E11.69) -chronic, controlled. Mildly uncontrolled upon admission. Hypertension (I10) -chronic, controlled and stable. Hyperlipidemia (E78.5) -chronic, treated. - HPI History of Present Illness: Shruti Marie is a pleasant 67-year-old white, female with a past medical history of diabetes mellitus type 2, hypertension, and hyperlipidemia, who began to have fever with chills about 4 or 5 days ago. She came to the emergency room very early today with rigors, chills. Blood cultures were obtained, 2 sets of blood cultures came back positive for gram-negative bacilli and the patient was directed to come back to the hospital for admission for IV antibiotics. Patient will be admitted to inpatient under hospitalist care to treat and await culture results. Metformin was placed on hold and substituted with SSI, as a standard precautionary measure in the event the patient needs an emergent scan with contrast. - CONSULTS | PROCEDURES Consultations: none. - HOSPITAL COURSE Hospital Course: Patient was called back after discovering positive blood cultures and grew out escherichia coli with sensitivities. Bacteremia was treated with aggressive IV inpatient antibiotics for a full 72 hours, then transitioned to a PO form of antibiotic that had a noted sensitivity. Hospital course was uncomplicated and patient continued to improve clinically. As part of septic work-up and to rule out pylenonephritis, a chest x-ray and retroperitoneal US were completed and normal. She complained about the lack of sleep that she got in the hospital and thought she would be able to heal better at home. Her blood sugars were well controlled with SSI and Lantus while inpatient, and resumed metformin with Lantus for home. She was discharged home with in stable condition and transported via private car. She did not have any oxygen or DME needs. - ALLERGIES Allergies/Adverse Reactions: Allergies Allergy/AdvReac Type Severity Reaction Status Date / Time No Known Drug Allergies Allergy Verified 05/29/17 02:27 - MEDICATIONS Home Medications: Ambulatory Orders Medication Instructions Recorded Confirmed Aspirin [Aspirin EC] 81 mg PO DAILY 05/29/17 05/30/17 Canagliflozin [Invokana] 100 mg PO DAILY 05/29/17 05/30/17 Felodipine [Felodipine ER] 5 mg PO DAILY 05/29/17 05/30/17 Lisinopril 20 mg PO DAILY 05/29/17 05/30/17 Simvastatin 40 mg PO QPM 05/29/17 05/30/17 glipiZIDE ER [Glucotrol Xl] 2.5 mg PO DAILY 05/29/17 05/30/17 metFORMIN [Glucophage] 500 mg PO DAILY 05/29/17 05/30/17 Levofloxacin [Levaquin] 500 mg PO DAILY 10 Days #10 tablet 06/01/17 Saccharomyces Boulardii [Florastor] 250 mg PO BID #40 capsule 06/01/17 - PHYSICAL EXAM AT DISCHARGE General Appearance: positive: No acute distress, Alert Eyes Bilateral: positive: Normal inspection, PERRL ENT: positive: ENT inspection nml, Pharynx nml, No signs of dehydration Neck: positive: Nml inspection, Thyroid nml, No JVD, Trachea midline Respiratory: positive: Chest non-tender, No respiratory distress, Breath sounds nml Cardiovascular: positive: Regular rate & rhythm, No gallop, Decreased pulse(s) Peripheral Pulses: positive: 2+ Abdomen: positive: Non-tender, No organomegaly, Nml bowel sounds, Other (rounded , obese, soft.) Back: positive: Nml inspection Skin: positive: Color nml, No rash, Warm, Dry, Cyanosis Extremities: positive: Full ROM, Nml appearance, Pedal edema (dependent.) Neurologic/Psychiatric: positive: Oriented x3, CN's nml (2-12), Motor nml, Sensation nml, Depressed mood/affect Reflexes: Bicep (R): 3+, Bicep (L): 3+ - LABS Result Diagrams: 06/01/17 05:35 06/01/17 05:35 - DIAGNOSTIC IMAGING Diagnostic Imaging Results: Prelim report reviewed, Final report reviewed Diagnostic Imaging Results Comments: Chest x-ray completed as part of septic work-up: FINDINGS: Lungs/Pleura: No focal opacities evident. No pleural effusion. No pneumothorax. Mediastinum: Within exam limitations, the cardiomediastinal contour is normal. Other: No bony abnormalities noted. IMPRESSION: Normal single view chest. Retroperitoneal Ultrasound to determine kidney involvement: FINDINGS: Right Kidney: 12.6 x 5.5 x 6.5 cm. Normal echotexture with no stones, contour- deforming masses, or hydronephrosis. Left Kidney: 11.6 x 5.4 x 7.5 cm. Normal echotexture with no stones, contour- deforming masses, or hydronephrosis. Bladder: Bilateral jets seen. The prevoid bladder volume was 293 cc. The postvoid bladder volume was 22.5 cc. Other: None. IMPRESSION: Normal renal ultrasound. - FOLLOW UP Follow Up: Your blood cultures grew out Escherichia coli and you were aggressively treated with IV antibiotics. Take all of your medications as prescribed. Please see your PCP as a follow up to this stay. Rest when you feel tired. Monitor your blood sugars. - TIME SPENT Time Spent in Discharge (Minutes): 60"
== END 2017-06-01 14:35 | disposition home or self-care (01) | DRG 872 ==
LOC: ED 19:10 → MS2 22:24
PROVIDERS: ADMIT Hospitalist; ATTEND Nurse Practitioner
DX: N12 Tubulo-interstitial nephritis, not specified as acute or chronic (principal); R78.81 Bacteremia; A41.51 Sepsis due to Escherichia coli [E. coli]; N30.90 Cystitis, unspecified without hematuria; E78.00 Pure hypercholesterolemia, unspecified; R53.83 Other fatigue; R00.0 Tachycardia, unspecified; E11.65 Type 2 diabetes mellitus with hyperglycemia; I10 Essential (primary) hypertension; E78.5 Hyperlipidemia, unspecified; Z87.891 Personal history of nicotine dependence; E66.9 Obesity, unspecified; Z68.33 Body mass index [BMI] 33.0-33.9, adult; Z79.84 Long term (current) use of oral hypoglycemic drugs; Z79.82 Long term (current) use of aspirin; Z79.899 Other long term (current) drug therapy
CPT/HCPCS: 36415; 71010; 76770; 80053; 81001; 81003; 83036; 83605; 83690; 85025; 87040; 87077; 87086; 87493; 93005; 96360; 96361; 96374; 99283; 99284; 99285

== ENCOUNTER 2017-11-01 11:25 | Outpatient (CLI) | payer MEDICARE, OTHER ==
--- NOTE | 2017-11-02 15:13 | Mammography Report ---
DIGITAL SCREENING MAMMOGRAM: 11/01/2017 CLINICAL INDICATION: A 67-year-old with family history of breast cancer, for screening. COMPARISON: 10/2016, 11/2014, 01/2014, 02/2013, 12/2012, 12/2011, 11/2010, 10/2009. TECHNIQUE: Routine CC and MLO projections were obtained of the breasts. FINDINGS: The breasts demonstrate scattered fibroglandular densities bilaterally. Punctate, typically benign calcifications are present. No suspicious masses, clustered microcalcifications, or regions of architectural distortion are identified. IMPRESSION: BENIGN FINDINGS. RECOMMENDATION: Routine annual screening unless otherwise clinically indicated. BIRADS CATEGORY 2 - benign findings. STANDARD QUALIFYING STATEMENTS: 1. This examination was reviewed with the aid of Computer-Aided Detection (CAD). 2. A negative or benign imaging report should not delay biopsy if clinically suspicious findings are present. Consider surgical consultation if warranted. More than 5% of cancers are not identified by imaging. 3. Dense breasts may obscure an underlying neoplasm. TD: 11/02/2017 12:51
== END 2017-11-01 11:26 | disposition home or self-care (01) ==
LOC: DI 11:25
PROVIDERS: ATTEND Internal Medicine
DX: Z12.31 Encounter for screening mammogram for malignant neoplasm of breast (principal); Z80.3 Family history of malignant neoplasm of breast
CPT/HCPCS: 77067

== ENCOUNTER 2018-12-13 14:23 | Outpatient (CLI) | payer MEDICARE, OTHER ==
--- NOTE | 2018-12-16 12:07 | Mammography Report ---
Reason: SCREENING MAMMO Procedure Date: 12/13/2018 Accession Number: [id number] / [id number] Procedure: [facility] - Screening Mammo w/Blaine CPT Code: FULL RESULT: EXAM: Screening Mammo w/Blaine DATE: 12/13/2018 3:04 PM CLINICAL HISTORY: Screening encounter. Family history of breast cancer in the mother at the age of 84 and the father at the age of 85. TECHNIQUE: (B) - Bilateral CC, laterally exaggerated CC, MLO views were obtained. COMPARISON: 11/01/2017 through 01/12/2014. PARENCHYMAL PATTERN: (A) - The breast(s) demonstrate(s) scattered fibroglandular densities. FINDINGS: A right upper outer breast 3 mm isodense nodule 12 cm from the nipple best seen on the 3-D right MLO image #8 and right cc 3-D image 35 demonstrates long-term stability on two-dimensional CC projections, typically benign. There are no suspicious masses, calcifications, or areas of distortion. IMPRESSION: Benign findings. BI-RADS category 2. RECOMMENDATION: (ANNUAL) - Recommend routine annual screening mammography. BI-RADS CATEGORY: (2) - Benign Findings. STANDARD QUALIFYING STATEMENTS: 1. This examination was not reviewed with the aid of Computer-Aided Detection (CAD). 2. A negative or benign imaging report should not preclude biopsy if clinically suspicious findings are present. 3. Dense breasts may obscure an underlying neoplasm. 4. This examination was reviewed with the aid of 3D breast imaging (tomosynthesis).
== END 2018-12-13 14:24 | disposition home or self-care (01) ==
LOC: DI 14:23
PROVIDERS: ATTEND Obstetrics & Gynecology
DX: Z12.31 Encounter for screening mammogram for malignant neoplasm of breast (principal); Z80.3 Family history of malignant neoplasm of breast
CPT/HCPCS: 77063; 77067